=== PATIENT | female | born 1945 | race Caucasian/White ===

== ENCOUNTER 2020-10-19 15:06 | Outpatient (CLI) | payer MEDICARE ==
[2020-10-19 16:13] LABS: Hemoglobin 10.7 g/dL (12.0-15.5); Mean Corpuscular HGB CONC 30.6 g/dL (32.0-36.0); Mean Corpuscular Hemoglobin 28.2 pg (27.0-33.0); Mean Corpuscular Volume 92.3 fl (81.6-98.3); Mean Platelet Volume 8.9 fl (7.4-10.4); Platelet Count 252 10x3/uL (150-450); RBC Distribution Width 12.7 % (11.5-14.5); Red Blood Cell (RBC) Count 3.79 10x6/uL (3.90-5.03); White Blood Cell (WBC) Count 6.8 10x3/uL (3.5-10.5)
[2020-10-19 16:30] LABS: Anion Gap 11 mmol/L (10-20); BUN (Urea Nitrogen) 22 mg/dL (9.8-20.1); Calc. Creatinine Clearance 0 mL/min (70-130); Carbon Dioxide 28 mmol/L (23-31); Chloride 108 mmol/L (98-107); Glucose 108 mg/dL (83-110); Potassium 4.5 mmol/L (3.5-5.1); Sodium 142 mmol/L (136-145)
[2020-10-20 05:52] LABS: SARS-CoV-2 PCR by NAA Not Detected (NotDetected)
== END 2020-10-19 15:07 | disposition home or self-care (01) ==
LOC: CSHLAB 15:06
PROVIDERS: ATTEND Orthopaedic Surgery
DX: Z01.818 Encounter for other preprocedural examination (principal); Z20.822 Contact with and (suspected) exposure to COVID-19; R94.31 Abnormal electrocardiogram [ECG] [EKG]
CPT/HCPCS: 80048; 85027; 87635; 93005; 93010; U0003; U0005

== ENCOUNTER 2020-10-22 05:59 | Day surgery (SDC) | payer MEDICARE ==
[2020-10-21 10:30] VITALS: BMI 26.2
[2020-10-22] MEDS ORDERED: Bupivacaine PF 0.5% 30 ML VIAL ONE (06:31)
[2020-10-22] MEDS ORDERED: Neomycin-Polymyxin 1 ML AMP ONE (06:32)
[2020-10-22] MEDS ORDERED: Fentanyl 100 MCG/2 ML VIAL ONE (06:44)
[2020-10-22] MEDS ORDERED: Ketorolac Tromethamine 30 MG/ML VIAL ONE (06:44)
[2020-10-22] MEDS ORDERED: Ondansetron PF 4 MG/2 ML Vial ONE (06:44)
[2020-10-22] MEDS ORDERED: Lidocaine 1% PF 5 ML VIAL ONE (06:44)
[2020-10-22] MEDS ORDERED: Dexamethasone 20 MG/5 ML VIAL ONE (06:44)
[2020-10-22] MEDS ORDERED: Midazolam HCl 2 mg/2 ml Vial ONE (06:44)
[2020-10-22] MEDS ORDERED: PROPOFOL 20 ML ONE (06:44)
[2020-10-22] MEDS ORDERED: Lidocaine 1% MPF 2 ML VIAL ONE (06:51)
[2020-10-22] MEDS ORDERED: ePHEDrine 50 MG/ML VIAL ONE (07:14)
[2020-10-22] MEDS ORDERED: PHENYLEPHRINE-NS 100 MCG/ML 10 ML SYRINGE ONE (08:22)
== END 2020-10-22 11:15 | disposition home or self-care (01) ==
LOC: CSHSDC 05:59
PROVIDERS: ATTEND Orthopaedic Surgery
DX: M19.071 Primary osteoarthritis, right ankle and foot (principal)
CPT/HCPCS: 76000; 93005; 93010; C1713; J0690; J1100; J1885; J2250; J2405; J2704; J3010; J3490; S0020